=== PATIENT | female | born 1985 | race African-American/Black ===

== ENCOUNTER 2016-03-28 10:13 | Emergency (ER) | payer MEDICAID ==
[2016-03-28] MEDS ORDERED: KETOROLAC 60 MG/2 ML VIAL IM ONE (10:58)
== END 2016-03-28 11:30 | disposition home or self-care (01) ==
LOC: FASTR 10:13
DX: S29.012A Strain of muscle and tendon of back wall of thorax, initial encounter (principal); S46.811A Strain of other muscles, fascia and tendons at shoulder and upper arm level, right arm, initial encounter; S76.112A Strain of left quadriceps muscle, fascia and tendon, initial encounter; S80.02XA Contusion of left knee, initial encounter; V53.6XXA Passenger in pick-up truck or van injured in collision with car, pick-up truck or van in traffic accident, initial encounter
CPT/HCPCS: 96372